=== PATIENT | male | born 1980 | race African-American/Black ===

== ENCOUNTER 2025-02-24 08:11 | Day surgery (SDC) | payer OTHER ==
[~2025-02-24 08:11] MED LIST: Sodium Chloride 0.9% 10 ML Syringe FLUSH PRN; Sodium Chloride 0.9% 10 ML Syringe FLUSH SCH
[2025-02-24] MEDS: Lactated Ringers 1,000 ML IV SCH (08:35)
[2025-02-24] MEDS ORDERED: Propofol 200 MG/20 ML SDV ONE ×3 (09:57→10:27)
[2025-02-24] MEDS ORDERED: dexmedeTOMIDine HCl 200 MCG/2 ML SDV ONE (09:57)
[2025-02-24] MEDS ORDERED: propofoL 500 MG/50 ML 50 ML ONE (09:57)
[2025-02-24] MEDS ORDERED: Succinylcholine 200 MG/10 ML MDV ONE (10:01)
[2025-02-24] MEDS ORDERED: Lactated Ringers 1,000 ML ONE (10:23)
== END 2025-02-24 11:35 | disposition home or self-care (01) ==
LOC: JD.SDS 08:11
PROVIDERS: ATTEND Surgery
DX: K63.5 Polyp of colon (principal); Q40.2 Other specified congenital malformations of stomach; K21.9 Gastro-esophageal reflux disease without esophagitis; Z87.891 Personal history of nicotine dependence; Z79.84 Long term (current) use of oral hypoglycemic drugs; Z79.899 Other long term (current) drug therapy
CPT/HCPCS: 43239; 45380; C9777; J2003; J2704; J7120; J7620; 00813; A9270-GY; J0330